=== PATIENT | female | born 1950 ===

== ENCOUNTER 2019-09-22 06:00 | Day surgery (SDC) | payer OTHER ==
[~2019-09-22 06:00] MED LIST: FORTAMET1000 MG; MICARDIS80 MG; SIMVASTATIN5 MG
[2019-09-22] MEDS ORDERED: DUI500 PO (12:00)
[2019-09-22] MEDS ORDERED: TRAM1TAB98 PO (12:00)
== END 2019-09-22 16:00 | disposition home or self-care (01) ==
LOC: CIR.AMB 06:00
DX: M23.331 Other meniscus derangements, other medial meniscus, right knee (principal); M65.861 Other synovitis and tenosynovitis, right lower leg